=== PATIENT | female | born 1995 | race African-American/Black ===

== ENCOUNTER 2018-10-25 20:10 | Emergency (ER) | payer SELFPAY ==
[~2018-10-25] VITALS: Ht 167.6 cm; Wt 72.0 kg
[2018-10-25] MEDS ORDERED: HYDROCODONE/ACETAMINOPHEN 5/325MG TABLET PO ONE (23:45)
[2018-10-26 02:10] VITALS: BP 114/78
== END 2018-10-26 02:10 | disposition home or self-care (01) ==
LOC: ER 20:10
DX: M72.2 Plantar fascial fibromatosis (principal)
CPT/HCPCS: 73630; 99283

== ENCOUNTER 2022-11-13 07:27 | Emergency (ER) | payer OTHER ==
[~2022-11-13] VITALS: Ht 167.6 cm; Wt 72.0 kg
[2022-11-13 07:53] VITALS: BP 137/93; PULSE 87; RESP 16; TEMP 98.6; O2SAT 100
== END 2022-11-13 08:09 | disposition home or self-care (01) ==
LOC: ER 07:27
DX: T23.002A Burn of unspecified degree of left hand, unspecified site, initial encounter (principal); X11.8XXA Contact with other hot tap-water, initial encounter; Y93.89 Activity, other specified; Y92.89 Other specified places as the place of occurrence of the external cause; Y99.8 Other external cause status
CPT/HCPCS: 99281